=== PATIENT | female | born 2000 ===

== ENCOUNTER 2021-10-20 12:25 | Emergency (ER) | payer MEDICAID ==
--- NOTE | 2021-10-20 13:11 | Emergency Department Report ---
Blank Doc - Documentation Documentation: 21-year-old female that presents with vaginal bleeding. Patient stated she is and has found that. 1- This is a initial triage assessment/medical screening only. Full assessment and work-up will be completed once the patient is in proper hospital gown, ED bed and in a private room setting. This initial assessment/diagnostic orders/clinical plan/ treatment(s) is/are subject to change based on pt's health status, clinical progression and re-assessment by fellow clinical providers in the ED. Further treatment and workup at subsequent clinical providers discretion. Patient/guardians urged not to elope from ED as their condition may be serious if not clinically assessed and managed. 2-labs 3-UA 4-US OB The patient was evaluated in the emergency department for symptoms described in the history of present illness. He/she was evaluated in the context of the g lobal COVID-19 pandemic, which necessitated consideration that the patient might be at risk for infection with the virus that causes COVID-19. Institutional protocols and algorithms that pertain to the evaluation of patients at risk for COVID-19 are in a state of rapid change based on information released by regulatory bodies including the CDC and federal and state organizations. These policies and algorithms were followed during the patient's care in the emergency department. Please note that these policies, procedures and recommendations changed on a rapid basis.
[2021-10-20 13:51] LABS: Basophils % (Auto) 0.5 % (0.0-1.8); Eosinophils # (Auto) 0.1 K/mm3 (0.0-0.4); Eosinophils % (Auto) 1.2 % (0.0-4.3); Hematocrit 39.7 % (30.3-42.9); Hemoglobin 13.3 gm/dl (10.1-14.3); Lymphocytes # (Auto) 1.6 K/mm3 (1.2-5.4); Lymphocytes % (Auto) 23.5 % (13.4-35.0); Mean Corpuscular HGB Conc 33 % (30-34); Mean Corpuscular Volume 89 fl (79-97); Monocytes # (Auto) 0.5 K/mm3 (0.0-0.8); Monocytes % (Auto) 7.1 % (0.0-7.3); Platelet Count 266 K/mm3 (140-440); Red Blood Count 4.48 M/mm3 (3.65-5.03); Red Cell Distribution Width 13.1 % (13.2-15.2)
--- NOTE | 2021-10-20 16:53 | Ultrasound Report ---
ULTRASOUND PELVIS INDICATION: vaginal bleeding. TECHNIQUE: Transabdominal and Transvaginal. Duplex Color Doppler used: Yes. COMPARISON: None available FINDINGS: Uterus: Present. Size: 9.6 x 5.2 x 6.5 cm. Endometrial complex: Early gestational sac dated 6 weeks 5 days. No pole identified. Mass lesions: None. Additional findings: None. Right Ovary -- Normal. Blood flow: Normal. Cyst or mass: 1.6 cm physiologic cyst. Left Ovary-- Normal. Blood flow: Normal. Cyst or mass: None. Urinary Bladder: Normal. Free Fluid: None. Additional Findings: None. IMPRESSION: 1. Early gestational sac does not contain a pole at this time. 2. Small physiologic cyst right ovary. No suspicious adnexal abnormality identified. Signer Name: Bill Diaz MD Signed: 10/20/2021 4:49 PM Workstation Name: [id number]
[2021-10-20 18:19] LABS: Mucus,Urine FEW /HPF; Renal Epithelial Cells,Urine 2 /LPF
[2021-10-20 19:33] LABS: Color,Urine Straw (Yellow)
--- NOTE | 2021-10-20 19:41 | Emergency Department Report ---
ED HPI - General Chief complaint: Vaginal Bleeding Stated complaint: /BLEEDING Time Seen by Provider: 10/20/21 13:09 Source: patient Mode of arrival: Ambulatory Limitations: No Limitations - History of Present Illness Initial comments: 21-year-old female presents to the emergency department for evaluation of vaginal bleeding. She states that she had a positive test a couple of days ago then bleeding started yesterday. She states that she had 1 episode of minimal bleeding yesterday that has since resolved. Patient states that she is who is about 4 to 5 weeks gestation. She states that she has not seen her [employer] yet. She denies fever, abdominal pain, back pain, nausea, vomiting, and vaginal discharge. MD Complaint: vaginal bleeding -: Sudden Severity scale (0 -10): 0 Consistency: now resolved Associated symptoms: vaginal bleeding. denies: nausea/vomiting, vaginal discha rge, abdominal pain, dysuria, headache, vision changes, malaise, dysparuenia, rash, seizure, shortness of breath, syncope, weakness Vaginal bleeding: light :: Yes Number of weeks : 5 OB History - Previous Pregnancies: no complications Pre- care: none - Related Data Allergies Allergy/AdvReac Type Severity Reaction Status Date / Time No Known Allergies Allergy Verified 10/20/21 13:12 ED Review of Systems ROS: Stated complaint: /BLEEDING Other details as noted in HPI Comment: All other systems reviewed and negative Constitutional: denies: chills, fever ENT: denies: congestion Respiratory: denies: shortness of breath Cardiovascular: denies: chest pain, palpitations Gastrointestinal: denies: abdominal pain, nausea, vomiting Musculoskeletal: denies: back pain Skin: denies: rash, lesions Neurological: denies: headache, weakness ED Physical Exam - General Limitations: No Limitations General appearance: alert, in no apparent distress - Head Head exam: Present: atraumatic, normocephalic - Eye Eye exam: Present: normal appearance. Absent: conjunctival injection - ENT ENT exam: Present: normal exam - Neck Neck exam: Present: normal inspection. Absent: tenderness, lymphadenopathy - Respiratory Respiratory exam: Present: normal lung sounds bilaterally. Absent: respiratory distress, wheezes, chest wall tenderness - Cardiovascular Cardiovascular Exam: Present: regular rate, normal heart sounds - GI/Abdominal GI/Abdominal exam: Present: soft. Absent: distended, tenderness, guarding, rebound - Extremities Exam Extremities exam: Present: normal inspection, full ROM, normal capillary refill. Absent: pedal edema, calf tenderness - Back Exam Back exam: Present: normal inspection. Absent: CVA tenderness (R), CVA tenderness (L) - Neurological Exam Neurological exam: Present: alert, oriented X3 - Psychiatric Psychiatric exam: Present: normal affect, normal mood - Skin Skin exam: Present: warm, dry, intact, normal color ED Course Vital Signs 10/20/21 10/20/21 13:11 20:53 Temperature 98.9 F Pulse Rate 81 82 Respiratory 18 12 Rate Blood Pressure 110/62 117/61 [Right] O2 Sat by Pulse 100 100 Oximetry ED Medical Decision Making - Lab Data Result diagrams: 10/20/21 13:18 - Radiology Data Radiology results: report reviewed, image reviewed ultrasound: FINDINGS: Uterus: Present. Size: 9.6 x 5.2 x 6.5 cm. Endometrial complex: Early gestational sac dated 6 weeks 5 days. No pole identified. Mass lesions: None. Additional findings: None. Right Ovary -- Normal. Blood flow: Normal. Cyst or mass: 1.6 cm physiologic cyst. Left Ovary-- Normal. Blood flow: Normal. Cyst or mass: None. Urinary Bladder: Normal. Free Fluid: None. Additional Findings: None. IMPRESSION: 1. Early gestational sac does not contain a pole at this time. 2. Small physiologic cyst right ovary. No suspicious adnexal abnormality identified. - Medical Decision Making 21-year-old female presents to the emergency department for evaluation of vaginal bleeding. She states that she had a positive test a couple of days ago then bleeding started yesterday. She states that she had 1 episode of minimal bleeding yesterday that has since resolved. Patient states that she is who is about 4 to 5 weeks gestation. She states that she has not seen her [employer] yet. She denies fever, abdominal pain, back pain, nausea, vomiting, and vaginal discharge. Physical exam unremarkable. Work-up unremarkable. Patient noted to have IUP at approximately 6 weeks with no pole identified. Patient advised to follow-up with [employer] for further evaluation and management in the next 2 to 3 days and return to the emergency department as needed. She verbalizes understanding of and agreement with plan of care. Critical care attestation.: If time is entered above; I have spent that time in minutes in the direct care of this critically ill patient, excluding procedure time. ED Disposition Clinical Impression: Vaginal bleeding before 22 weeks gestation Disposition: HOME / SELF CARE / HOMELESS Is pt being admited?: No Does the pt Need Aspirin: No Condition: Stable Instructions: Vaginal Bleeding During , First Trimester Additional Instructions: Follow-up with [employer] for further evaluation and management. Return to the emergency department as needed. Referrals: [facility] [Provider Group] - 3-5 Days Forms: Work/School Release Form(ED) Time of Disposition: 19:41
[2021-10-20 20:53] VITALS: BP 117/61
== END 2021-10-21 12:08 | disposition home or self-care (01) ==
LOC: ED 12:25
DX: O46.91 Antepartum hemorrhage, unspecified, first trimester (principal); Z3A.01 Less than 8 weeks gestation of pregnancy
CPT/HCPCS: 36415; 76801; 76817; 81001; 84702; 85025; 86900; 86901; 99284